=== PATIENT | male | born 1965 | race Caucasian/White ===

== ENCOUNTER 2016-06-11 21:39 | Inpatient (IN) | payer OTHER ==
[2016-06-11 22:28] LABS: Hematocrit 46 % (42-52); Hemoglobin 15.9 g/dl (14.0-18.0); Mean Corpuscular HGB Conc 34 g/dl (31-36); Mean Corpuscular Hemoglobin 30 pg (27-31); Mean Corpuscular Volume 87 fL (80-94); Mean Platelet Volume 9 um3 (7.4-10.4); Red Blood Count 5.31 10^6/ul (4.0-5.4); Red Cell Distribution Width 12 % (10.5-15); White Blood Count 5.6 10^3/ul (3.5-10.8)
--- NOTE | 2016-06-11 22:40 | ED ---
Eloy Murary Erika, scribed for Slick Wyatt MD on 06/11/16 at 2236 . Psychiatric Complaint - HPI Summary HPI Summary: Patient is a 50 y/o M presenting to the ED with a CC of SI. Patient reports that he got into an argument with his family, which escalated. Patient sates he is "beyond his breaking point." He reports some SI during this episode. Patient has a Hx depression. - History Of Current Complaint Chief Complaint: [facility] Time Seen by Provider: 06/11/16 21:52 Hx Obtained From: Patient Onset/Duration: Gradual Onset, Lasting Hours, Still Present Timing: Constant Severity Currently: Moderate Character: Depressed Aggravating Factor(s): Recent Stress - argument with family Has Suicidal: Reports: Thoughts - Allergies/Home Medications Allergies/Adverse Reactions: Allergies Allergy/AdvReac Type Severity Reaction Status Date / Time Cephalexin [From Keflex] Allergy Intermediate Hives Verified 06/11/16 21:44 Sulfamethoxazole Allergy Intermediate Hives Verified 06/11/16 21:44 w/Trimethoprim [From Bactrim] Home Medications: Home Medications Lisinopril [Zestril 10 MG-] 10 mg PO DAILY 06/12/16 [History Confirmed 06/12/16] PMH/Surg Hx/FS Hx/Imm Hx Endocrine/Hematology History: Denies: Hx Diabetes, Hx Thyroid Disease Cardiovascular History: Denies: Hx Hypertension Respiratory History: Denies: Hx Asthma, Hx Chronic Obstructive Pulmonary Disease (COPD) GI History: Denies: Hx Ulcer Psychiatric History: Reports: Hx Depression Infectious Disease History: No Infectious Disease History: Denies: Hx Clostridium Difficile, Hx Hepatitis, Hx Human Immunodeficiency Virus (HIV), Hx of Known/Suspected MRSA, Hx Shingles, Hx Tuberculosis, Hx Known/ Suspected VRE, Hx Known/Suspected VRSA, History Other Infectious Disease, Traveled Outside the [place] in Last 30 Days - Family History Known Family History: Positive: Other - alcohol abuse - Social History Alcohol Use: Weekly Hx Substance Use: No Substance Use Type: Reports: None Hx Tobacco Use: No Smoking Status (MU): Never Smoked Tobacco Review of Systems Negative: Fever Positive: Depressed - with SI All Other Systems Reviewed And Are Negative: Yes Physical Exam Triage Information Reviewed: Yes Vital Signs On Initial Exam: Initial Vitals Temp Pulse Resp BP Pulse Ox 97.7 F 65 18 188/121 98 06/11/16 21:42 06/11/16 21:42 06/11/16 21:42 06/11/16 21:42 06/11/16 21:42 Vital Signs Reviewed: Yes Appearance: Positive: Well-Appearing, No Pain Distress Skin: Positive: Warm Head/Face: Positive: Normal Head/Face Inspection Eyes: Positive: RAYMUNDO ENT: Positive: Hearing grossly normal Neck: Positive: Supple Respiratory/Lung Sounds: Positive: Breath Sounds Present Cardiovascular: Positive: RRR Abdomen Description: Positive: Nontender, Soft Bowel Sounds: Positive: Present Musculoskeletal: Positive: Strength/ROM Intact Neurological: Positive: Sensory/Motor Intact, Alert, Oriented to Person Place, Time Psychiatric: Positive: Depressed Diagnostics - Vital Signs Vital Signs Temp Pulse Resp BP Pulse Ox 06/11/16 21:56 99.1 F 74 20 191/127 99 06/11/16 21:42 97.7 F 65 18 188/121 98 - Laboratory Result Diagrams: 06/11/16 22:20 06/11/16 22:20 Lab Statement: Any lab studies that have been ordered have been reviewed, and results considered in the medical decision making process. Course/Dx - Course Assessment/Plan: Patient is medically cleared for MHU Evaluation at 23:00 - Differential Dx/Clinical Impression Provider Diagnosis: Depression Discharge - Discharge Plan Condition: Stable Disposition: ADMITTED TO [facility] documentation as recorded by the Eloy corrales Erika accurately reflects the service I personally performed and the decisions made by Edmundo salmeron David, MD.
[2016-06-11 22:41] LABS: Urine Bilirubin Negative (Negative); Urine Glucose Negative (Negative); Urine Nitrite Negative (Negative)
[2016-06-11 22:42] LABS: ALT 37 U/L (7-52); AST 26 U/L (13-39); Albumin 4.6 g/dL (3.2-5.2); Alkaline Phosphatase 73 U/L (34-104); Anion Gap 9 mmol/L (2-11); BUN/Creatinine Ratio 16.7 (8-20); Blood Urea Nitrogen 17 mg/dL (6-24); CO2 Carbon Dioxide 23 mmol/L (22-32); Calcium 9.4 mg/dL (8.6-10.3); Chloride 102 mmol/L (101-111); EGFR African American 100.2 (>60); Globulin 3.1 g/dL (2-4); Glucose 105 mg/dL (70-100); Potassium 3.9 mmol/L (3.5-5.0); Sodium 134 mmol/L (133-145); Total Protein 7.7 g/dL (6.4-8.9)
[2016-06-11 22:54] LABS: Benzodiazepine Urine Screen None Detected (None Detect)
[2016-06-11 23:10] LABS: Acetaminophen < 15 mcg/mL; Alcohol < 10 mg/dL (<10); Salicylate < 2.50 mg/dL (<30)
[2016-06-11 23:20] LABS: TSH (Thyroid Stimulating Horm) 1.37 mcIU/mL (0.34-5.60)
[2016-06-12] MEDS ORDERED: Lisinopril TAB* 10 MG PO ONE (01:19)
[2016-06-12] MEDS ORDERED: Al Hydrox/Mg Hydrox/Simet LIQ* 30 ML UDC PO PRN (03:18)
[2016-06-12] MEDS ORDERED: Acetaminophen TAB* 325 MG PO PRN (03:18)
[2016-06-12] MEDS ORDERED: LORazepam TAB(*) WAM SCALE 0-6 MG PO SCH (04:00)
[2016-06-12] MEDS ORDERED: LORazepam IM* PER WAM PARAMETERS IM SCH (04:00)
[2016-06-12] MEDS: Vitamin THERAPEUTIC TAB PO SCH (09:08)
[2016-06-12] MEDS: Lisinopril TAB* 10 MG PO SCH (20:36)
[2016-06-12] MEDS: Sertraline* 25 MG TAB PO SCH (20:36)
--- NOTE | 2016-06-13 02:26 | HP ---
INITIAL PSYCHIATRIC ASSESSMENT: DATE OF ADMISSION: 06/12/16 ATTENDING PHYSICIAN: Feliz Hines MD* (dictated by Axel Maxwell NP) IDENTIFYING INFORMATION: The patient is a 50-year-old white male admitted to this facility on 06/11/16. Admitting status is voluntary. The patient was seen and examined. The chart was reviewed and the case was discussed with clinical staff available at the time of the visit. CHIEF COMPLAINT/REASON FOR ADMISSION: The patient states, "My depression has been getting worse over the past 3 months." HISTORY OF PRESENT ILLNESS: Apparently, the patient had been experiencing worsening of depression over the course of the last 3 months. This apparently crescendo'd prior to his coming to the hospital, in which he had had an argument with his spouse and stepchild, which resulted in his developing suicidal ideation. He was thinking of either jumping off a bridge or taking a handful of pills. He reports that these thoughts have been increasing in frequency. Additionally, he reports that he has been having some difficulty with alcohol use. Specifically, he reports that he has been drinking approximately 8 to 10 drinks per day, divided between beer and hard liquor. He states that some nights he will wake up in the middle of the night with the drink still in his hand. PAST PSYCHIATRIC HISTORY: The patient reports that his depression possibly began around 7th or 8th grade when his best friend in school noted that he had been complaining of headaches every day. He stated that he believes that in high school and college, his depression continued to get worse. This is his first hospitalization. In the past, he had seen counselors both before and after taking medications. He had taken Zoloft for several years on and off with overall positive effect on his mood. PAST MEDICATIONS: He has been on no other medications other than Zoloft. ALLERGIES: The patient has allergies to CEPHALEXIN, SULFAMETHOXAZOLE with TRIMETHOPRIM. HISTORY OF FAMILY PSYCHIATRIC ILLNESS: He states that his mother has "some kind of issue, I don't know what," but he denies any attempted or completed suicides in his family. SUBSTANCE USE HISTORY: Yves states that he does not smoke. As previously mentioned, he does drink 7 days a week anywhere between 8 to 10 drinks, including both beer and hard liquor. He denies any recreational drug use or abuse. He has no history of inpatient or outpatient rehab. PSYCHOSOCIAL HISTORY: The patient is currently . He lives with his . Educationally, he did complete a degree in physics and computer science at [employer]. He currently works managing a team of software developers, which he describes as very stressful. No significant legal history. REVIEW OF SYSTEMS: General: The patient denies fevers, chills, or night sweats. Sleep: He reports that he generally falls asleep with the drink still in his hand; however, he reports that he slept fair last night. Reports fair energy. No changes in appetite were readily appreciated. HEENT: He denies headache, dizziness, syncope, changes in hearing or vision, difficulty chewing or swallowing. Cardiovascular: He denies chest pain or palpitations. Pulmonary : He denies shortness of breath or cough. Gastrointestinal: He denies abdominal pain, nausea, or vomiting. He does report occasional bouts of diarrhea, however. Genitourinary/Reproductive: He denies dysuria. Neurologic: He denies any issues. Musculoskeletal: He denies any muscle or joint pain. Endocrine/Hematopoietic/Lymphatic: He denies any issues. REVIEW OF LABORATORY DATA: Undertaken at this time, the following abnormals are noted: Lymphocyte percentage is low at 24.6. Chemistry studies were all within normal parameters save for an elevation in his glucose at 105. The urine was within normal parameters. Urine toxicology was negative. PHYSICAL EXAMINATION GENERAL APPEARANCE: The patient is well developed, well nourished, alert, and cooperative, appears to be in no acute distress at the time of the exam. HEENT: Head is normocephalic, atraumatic. NECK: Appears normal on inspection with no overt JVD. LUNGS: Clear to auscultation. CARDIAC: Rate is 58. No rubs, gallops, or murmurs were readily appreciated. ABDOMEN: Firm, but not distended. Bowel sounds active in all quadrants. No guarding, tenderness, or rebound tenderness appreciated. MUSCULOSKELETAL: The patient demonstrates full range of motion. EXTREMITIES: Not edematous. NEUROLOGIC: The patient is alert and oriented x3 with no focal neuro deficits. Hand grasps were equal bilaterally. SKIN: Intact. Warm and dry. MENTAL STATUS EXAMINATION: The patient is of healthy build and appears his stated age with good grooming and hygiene noted. He is wearing a dark T-shirt and jeans. On gross examination, he appears to have no physical deformities. Attitude towards the examiner was pleasant and cooperative. Gait and motor coordination: He does ambulate with a steady gait, posture erect. He did not appear to be demonstrating any noteworthy mannerisms, gestures, tics, or extrapyramidal movements. Activity level was within normal limits with no overt evidence of psychomotor excitation or retardation appreciated. He is alert with no evidence of confusion or lack of proper association for person, place, or time noted. His speech was clear, coherent, goal directed, and spontaneous. He rarely made eye contact throughout the clinical interview. Self-reported mood is depressed. He is currently rating his depression as a 3 or 4 on the 1-10 scale, in which 10 represents the most depressed he has ever felt; however, he stated for the last few days, his depression had been at a 7 or 8 on the 1-10 scale. He is currently denying symptoms of anxiety. His affect is consistent with self-reported mood. He is denying visual or auditory hallucinations. No overt delusion or paranoid thought process is readily apparent. Judgment and insight appear grossly intact. Impulse control, of course, surrounding alcohol is impaired. Intellectual ability, general fund of knowledge above average. He appears to be a reliable historian as he was able to recall both recent and past events in his personal autobiographical history. Concentration and attention also appeared grossly intact. He is currently denying suicidal or homicidal ideation. He is future oriented. ADMITTING DIAGNOSIS: Rule out major depressive disorder versus substance- induced depressive disorder. PLAN OF TREATMENT: Admit to BSU. At this time, we are going to continue monitoring the patient for withdrawal symptoms. Appropriate medications have already been ordered to address withdrawal symptoms. Activity as tolerated with restrictions to the unit. The patient will participate in treatment planning activities, individual, group, and milieu therapy as well as medication management sessions and discharge planning until he is stable or referred to a higher level of care. The patient and I did discuss his alcohol use and the patient does admit that he is experiencing a problem with alcohol. We discussed different possibilities including inpatient and outpatient treatments. The patient would like the time to reflect on same. At this time, secondary to elevated blood pressure, we are going to add 5 mg of lisinopril p.o. daily to the patient's current antihypertensive regimen. Informed consent for the same has been obtained. At this time, we will make no changes to his antidepressant medication. TREATMENT GOAL: Stabilization. PROGNOSIS: Fair. ESTIMATED LENGTH OF STAY: 3 to 5 days. DISCHARGE CRITERIA: The patient will be discharged when he is no longer a risk to himself or others and has met the criteria set forth by the treatment team for discharge. I have reviewed this case with Dr. Feliz Hines, who concurs with assessment and treatment plan. AXEL MAXWELL, AFFIRMATIVE ACTION SPECIALIST [id number]/[facility] #: [id number] BRITT
[2016-06-13] MEDS: Lisinopril TAB* 5 MG PO SCH (09:30)
[2016-06-13] MEDS: Vitamin THERAPEUTIC TAB PO SCH (09:30)
--- NOTE | 2016-06-13 13:24 | PN ---
MHU: Group Therapy Note - Service Type Service Type: 25822 Group Psychotherapy - Cognitive Behavioral Group Therapy ( CBT):Patient was attentive and participatory in CBT programming this morning, and remained in good behavioral control. Patient expressed positive insights regarding relevant treatment interventions and goals.
--- NOTE | 2016-06-13 15:13 | PN ---
Subjective - Subjective Service Type: 50409 Hosp care 25 min moderate complexity Subjective: Yves report norman this SI was only fleeting and is now remitted. He denies prior episodes of suicidality. He is unsure of how he wants to address his abuse of alcohol. He feels he might do well to separate from his . He reports good sleep and improved mood over the 2 days he has been here. He identified beaver stressors as his relationship with his , and his situation at work. Objective - Appearance Appearance: Healthy Appearing Dysmorphic Features: No Hygiene: Normal Grooming: Well Kept - Behavior Psychomotor Activities: Normal Exhibits Abnormal Movement: No - Attitude and Relatedness Attitude and Relatedness: Cooperative Eye Contact: Good - Speech Quality: Unpressured Latencies: Normal Quantity: Appropriate - Mood Patient's Decription of Mood: "Calm, lucid" - Affect Observed Affect: Fair Affect Consistent with: Euthymia - Thought Process Patient's Thought Process: Coherent, Goal Directed Thought Content: No Passive Wish, No Suicidal Planning, No Homicidal Ideation, No Paranoid Ideation - Sensorium Experiencing Hallucinations: No, Sensorium is Clear Type of Hallucinations: Visual: No, Auditory: No, Command: No - Level of Consciousness Level of Consciousness: Alert Orientation: Yes Intact, Yes Orientated to Time, Yes Orientated to Place, Yes Orientated to Person - Impulse Control Impulse Control: Intact - Insight and Judgement Insight and Judgement: Fair - Group Participation Particating in Group Activities: Yes - Medication Management Medication Management Adherence: Yes Assessment - Assessment Merits Inpatient Hospitalization: For Stabilization, Consolidate Improvements, For Discharge Planning Inpatient DSM-IV Dx: Other specified depressive disorder. Alcohol use disorder Clinical Impression: Yves Cantu is a 50 year-old man who reported SI to jump from a bridge or to overdose, leading to admission for safety, assessment and treatment. He has been drinking 8-10 alcoholic beverages daily for months. 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 He is agreeable to work with a therapist after discharge to address coping with these stressors with less disturbance of mood and without reliance on alcohol. Plan - Plan Treatment Plan: Name: YVES CANTU Birthdate: 1965 [id number] Continue Zoloft 75 mg against depressive symptoms. Arrange aftercare with private clinician, perhaps GP John as good match to his constellation of problems. Continued Medication Management: Continue Outpt Medication Medications: Current Medications Acetaminophen (Tylenol Tab*) 650 mg PO Q4H PRN PRN Reason: PAIN or TEMP > 101 F Al Hydrox/Mg Hydrox/Simethicone (Maalox Plus*) 30 ml PO Q4H PRN PRN Reason: INDIGESTION Lisinopril (Prinivil Tab*) 10 mg PO BEDTIME MIKO Last Admin: 06/12/16 20:36 Dose: 10 mg Lisinopril (Prinivil Tab*) 5 mg PO DAILY MIKO Last Admin: 06/13/16 09:30 Dose: 5 mg Lorazepam (Ativan Inj*) 0 - 6 mg IM .PER WAM PARAMETERS MIKO PRN Reason: Protocol Lorazepam (Ativan Tab(*)) 0 - 6 mg PO .PER WAM PARAMETERS MIKO PRN Reason: Protocol Multivitamins (Theragran Tab*) 1 tab PO DAILY MIKO Last Admin: 06/13/16 09:30 Dose: Not Given Sertraline HCl (Zoloft*) 75 mg PO BEDTIME MIKO Last Admin: 06/12/16 20:36 Dose: 75 mg - Discharge Plan Discharge Plan: Outpatient Follow Up Outpatient Program: Private Clinician(s) - And encourage consideration of program to address alcohol use disorder
[2016-06-13] MEDS: Lisinopril TAB* 10 MG PO SCH (20:35)
[2016-06-13] MEDS: Sertraline* 25 MG TAB PO SCH (20:35)
[2016-06-14 08:12] VITALS: BP 166/110
[2016-06-14] MEDS: Lisinopril TAB* 5 MG PO SCH (08:37)
[2016-06-14] MEDS: Vitamin THERAPEUTIC TAB PO SCH (09:14)
[2016-06-14] MEDS ORDERED: amLODIPine TAB* 5 MG PO SCH (11:40)
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
--- NOTE | 2016-06-14 20:08 | CONS ---
CONSULTATION REPORT: DATE OF CONSULT: 06/14/16 PRIMARY CARE PROVIDER: Dr. Montez. MY ATTENDING PHYSICIAN WHILE IN THE HOSPITAL: Dr. Kitty Storey (report dictated by Jonnathan Mir NP). REQUESTING PHYSICIAN IN CONSULT: Dr. Bird. REASON FOR MEDICAL CONSULT: Evaluation of hypertension. HISTORY OF PRESENT ILLNESS: Mr. Cantu is a 50-year-old male patient that presented voluntarily to the psychiatric services for increasing depression and suicidal ideation. He was admitted under the care of Psychiatry for management of this. He carries a history of hypertension and depression. He says he was diagnosed with hypertension, he thinks a couple of months ago, he was started on lisinopril. He has been recording his blood pressures at home and he says he has not really noticed much change. He did not give me a specific number, but he says that he noticed initially before getting started on blood pressure medications, he would have a pressure in his neck and pressure in his head. He said his head felt like a balloon that was going to pop. He states he has not had any more of these symptoms, but while here in the [facility], he has noted that his blood pressure has been much higher, is in the 160s and 110 range diastolically. Denies having any chest pressure, no shortness of breath, no leg swelling. He does state he has some pressure behind his eyes and headache there. It is not the worst headache of his life. He says that he has not had any trouble urination and he denies having any abdominal discomfort. He states that he was taking lisinopril 10 mg and the [facility] had increased it to 5 mg at night and 10 mg in the morning for a total of 15 a day. He stated that he has not noticed any change in this and he again states that the headache really started today. This morning his blood pressure was 156/110 and we were asked to evaluate in consult to help manage. PAST MEDICAL HISTORY: Significant for: 1. Hypertension. 2. Depression. PAST SURGICAL HISTORY: He has denied. CURRENT MEDICATIONS: Include: 1. Tylenol 650 mg every 4 hours as needed. 2. Maalox 30 cc p.o. every 4 hours as needed. 3. Lisinopril 10 mg in the morning, 5 mg at night. 4. WAM protocol. 5. Multivitamin 1 tablet daily. 6. Zoloft mg at bedtime. ALLERGIES TO MEDICATIONS: Include KEFLEX and BACTRIM. FAMILY HISTORY: His mother has a history of hypertension. Father has a history of prostate cancer. SOCIAL HISTORY: He does drink 8 to 10 alcoholic beverages a day. He does not smoke. He does not use illicit drugs. 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 Surrogate decision maker is his . REVIEW OF SYSTEMS: There is no documented fever. He denied having any significant weight change. There was no double vision. He denies having any ear discharge. There is no rhinorrhea. No sore throat. No thyroid enlargement. He denies having any chest pain. No orthopnea, no nocturnal dyspnea. There is no abdominal pain. No nausea, no vomiting. No dysuria, no frequency. No seizure, no loss of consciousness. No pruritus and no skin ulceration. Review of 14 systems completed, all others negative. PHYSICAL EXAM: Vital Signs: Blood pressure 166/110, pulse of 50, respirations 16, O2 sat 100%, temperature 97.2. General: At this time, Mr. Cantu is a 50- year-old male patient. He is sitting in the psychiatric bed. He does not appear to be in any acute distress. HEENT: Head atraumatic. Eyes: Sclerae are anicteric, not pale. Throat: Oral mucosa appears to be moist. No oropharyngeal erythema. Neck: Supple. Heart sounds, S1 and S2, regular rate and rhythm. No murmurs, rubs, or gallops. Lungs: Clear to auscultation. No wheezes, rales, or rhonchi. Abdomen: Soft, flat, nontender. Bowel sounds present. Extremities: Pulses 2+ throughout. No peripheral edema noted. Neurologically: He is awake, alert, and oriented x3. Tongue midline. No facial drooping. Skin is intact. DIAGNOSTIC STUDIES/LAB DATA: Labs from admission revealed WBC of 5.6, RBC of 5.31, hemoglobin 15.9, hematocrit 46, platelet count of 158. Sodium was 134, potassium 3.9, chloride 102, bicarb 23, BUN 17, creatinine 1.02, glucose 105, calcium 9.4. Total bili 0.8, AST 26, ALT 37, alk phos 37. Albumin of 4.6. Urine was negative. Toxicology negative. He had an EKG obtained today due to bradycardia, which shows a sinus bradycardia rate of [address] elevations or T-wave inversions. No previous for comparison. Old medical records were reviewed. ASSESSMENT AND PLAN: Mr. Cantu is a 50-year-old male patient, coming into the [facility] for suicidal ideation and depression. While there in the [facility], it was noted that he did have elevated blood pressure, the hospitalist service was asked to evaluate in consult. My recommendations at this point are: 1. Suicidal ideation with depression. I will defer the management of this to psychiatric team. 2. Hypertension. This is multifactorial. He does have history of drinking and certainly he could have just subtle withdrawal and this could be elevating the blood pressure, but I do think it is warranted to put the lisinopril to 15 mg a day first thing in the morning and then Norvasc 5 mg at bedtime. I am going to give him a dose of Norvasc 5 now. He does have a headache, it sounds to be sinus. It could be related to the blood pressure, so we will give him the Norvasc, repeat blood pressure now, and we will see if it is trending down. We will continue to follow. I am going to repeat his CBC and a BMP in the morning, then he can follow with his primary. 3. Bradycardia. He is asymptomatic at this point. I would avoid beta blockers , and that is why chose a calcium channel kyle. His EKG is unremarkable, ___ __ jose, he does not appear to have any blocks. He is asymptomatic and can follow with his primary. 4. DVT prophylaxis. Per the primary team. 5. Fluids, electrolytes, and nutrition. I would recommend a heart-healthy diet. 6. Code status is full code. TIME SPENT: On the consult was 60 minutes; greater than half the time was spent [id number] with the patient, going over the plan of care with the patient and implementing the plan of care. I did discuss the plan of care with my attending, Dr. Storey; she is in agreement. JONNATHAN MIR NP CC: Dr. Bird; Dr. Montez* [id number] #: [id number]
[2016-06-15] MEDS ORDERED: Lisinopril TAB* 10 MG PO SCH (09:00)
== END 2016-06-14 17:50 | disposition home or self-care (01) | DRG 885 ==
LOC: ED 21:39 → BSU 06-12 03:37
PROVIDERS: ADMIT Psychiatry & Neurology Psychiatry; ATTEND Psychiatry & Neurology Psychiatry
PROC: HZ2ZZZZ Detoxification Services for Substance Abuse Treatment (ICD-10-PCS; principal; 2016-06-12)
DX: F32.89 Other specified depressive episodes (principal); I10 Essential (primary) hypertension; F10.10 Alcohol abuse, uncomplicated; Z88.2 Allergy status to sulfonamides; Z88.8 Allergy status to other drugs, medicaments and biological substances; Z79.899 Other long term (current) drug therapy; Z82.49 Family history of ischemic heart disease and other diseases of the circulatory system; Z80.42 Family history of malignant neoplasm of prostate
CPT/HCPCS: 36415; 80053; 80307; 80320; 80329; 81003; 84443; 85025; 90853; 93005; 99222; 99232; 99238; A9270-GY; G0480